=== PATIENT | female | born 1990 | race Hispanic/Latino ===

== ENCOUNTER 2020-12-12 21:55 | Emergency (ER) | payer SELFPAY ==
[2020-12-12 22:56] LABS: Bilirubin Neg (Negative); Blood, Urine Negative (Negative); Clarity Clear (Clear); Glucose, Urine (Dipstick) Normal (Negative); Ketone, Urine Negative (Negative); Leukocyte Negative (Negative); Nitrite Negative (Negative); Protein, Urine (Dipstick) Negative (Neg-Trace); Specific Gravity, Urine 1.005 (1.002-1.036); Urobilinogen Normal mg/dL (Less than 2)
[2020-12-12 22:57] LABS: Pregnancy Test - Urine (BHCG) Negative (Negative); Pregu Control Background? CLEAR/WHITE (CLR/WHITE); Pregu Control Bar Appear? YES (CONTROL BAR); Specific Gravity 1.005 (1.002-1.036)
[2020-12-12 23:10] LABS: Amphetamine Not Detected (NotDetected); Barbiturates Screen Not Detected (NotDetected); Benzodiazepine Screen Not Detected (NotDetected); Cocaine Metabolite Screen Detected (NotDetected); Methadone Not Detected (NotDetected); Methamphetamine Not Detected (NotDetected); Opiate Screen Not Detected (NotDetected); Oxycodone Screen Not Detected (NotDetected); Phencyclidine (PCP) Not Detected (NotDetected); THC/Cannabinoid Screen Not Detected (NotDetected); Tricyclic Screen Not Detected (NotDetected)
== END 2020-12-12 23:28 | disposition home or self-care (01) ==
LOC: CSHERS 21:55
DX: S60.222A Contusion of left hand, initial encounter (principal); S60.221A Contusion of right hand, initial encounter; F17.210 Nicotine dependence, cigarettes, uncomplicated; W22.01XA Walked into wall, initial encounter
CPT/HCPCS: 80306; 81003; 81025

== ENCOUNTER 2022-02-25 10:00 | Outpatient (CLI) | payer OTHER | END 2022-02-25 10:01 | disposition home or self-care (01) | LOC: CSHULT 10:00 | PROVIDERS: ATTEND Family Medicine | DX: Z34.82 Encounter for supervision of other normal pregnancy, second trimester (principal); Z3A.23 23 weeks gestation of pregnancy | CPT/HCPCS: 76805 ==

== ENCOUNTER 2022-06-13 17:09 | Day surgery (SDC) | payer OTHER ==
[2022-06-13 17:35] VITALS: BMI 29.2
[2022-06-13 21:52] LABS: Fetal Membranes Rupture No Membranes Rupture (No Rupture)
== END 2022-06-13 22:48 | disposition home or self-care (01) ==
LOC: CSHLD/OP 17:09
PROVIDERS: ATTEND Family Medicine
DX: O36.8130 Decreased fetal movements, third trimester, not applicable or unspecified (principal); Z3A.38 38 weeks gestation of pregnancy; O9A.213 Injury, poisoning and certain other consequences of external causes complicating pregnancy, third trimester; S39.91XA Unspecified injury of abdomen, initial encounter; Z79.82 Long term (current) use of aspirin; Z79.899 Other long term (current) drug therapy; W20.8XXA Other cause of strike by thrown, projected or falling object, initial encounter; Y93.89 Activity, other specified
CPT/HCPCS: 76815; 76819; 84112; 99283

== ENCOUNTER 2022-06-27 19:30 | Inpatient (IN) | payer OTHER ==
[2022-06-28 06:33] VITALS: BMI 29.8
[2022-06-28] MEDS ORDERED: Diphenoxylate HCl/Atropine Tablet PO PRN (07:57)
[2022-06-28] MEDS ORDERED: Misoprostol 200 MCG TAB PR PRN (07:57)
[2022-06-28] MEDS ORDERED: Lactated Ringer's 1,000 ML IV SCH (07:57)
[2022-06-28] MEDS ORDERED: Methylergonovine 0.2 MG/ML VIAL IM PRN (07:57)
[2022-06-28] MEDS ORDERED: NS w/ Oxytocin 30 units 500 ML IV SCH ×2 (07:57→18:39)
[2022-06-28] MEDS ORDERED: Promethazine HCl 25 MG/ML VIAL IM PRN ×3 (07:57→18:39)
[2022-06-28] MEDS ORDERED: hydrALAZINE 20 MG/ML VIAL SLOW IVP PRN ×2 (07:57→18:39)
[2022-06-28] MEDS ORDERED: Ibuprofen 800 MG TAB PO PRN (07:57)
[2022-06-28] MEDS ORDERED: HYDROcodone/Acetaminophen 5/325 mg Tablet PO PRN ×2 (07:57→18:39)
[2022-06-28] MEDS ORDERED: Butorphanol Tartrate 1 MG/ML VIAL SLOW IVP PRN (07:57)
[2022-06-28] MEDS ORDERED: Acetaminophen 500 MG TAB PO PRN (07:57)
[2022-06-28] MEDS ORDERED: Lidocaine 1% (PF) 30 ML VIAL SC PRN (07:57)
[2022-06-28] MEDS ORDERED: Carboprost 250 MCG/ML AMP IM PRN (07:57)
[2022-06-28] MEDS ORDERED: Ondansetron PF 4 MG/2 ML Vial IVP PRN ×3 (07:57→18:39)
[2022-06-28] MEDS ORDERED: Bupivacaine 0.25% HCL 30 ML VIAL ONE (08:00)
[2022-06-28 08:40] LABS: Hemoglobin 8.5 g/dL (12.0-15.5); Mean Corpuscular HGB CONC 27.8 g/dL (32.0-36.0); Mean Corpuscular Hemoglobin 17.9 pg (27.0-33.0); Mean Corpuscular Volume 64.4 fl (81.6-98.3); Mean Platelet Volume 9.4 fl (7.4-10.4); Platelet Count 390 10x3/uL (150-450); RBC Distribution Width 20.8 % (11.5-14.5); Red Blood Cell (RBC) Count 4.75 10x6/uL (3.90-5.03); White Blood Cell (WBC) Count 12.4 10x3/uL (3.5-10.5)
[2022-06-28 09:16] LABS: Syphilis Antibody Nonreactive (Nonreactive); Syphilis Antibody Index 0.11 S/CO (<1.00 Non-Reactive)
[2022-06-28 09:18] LABS: HBSAg Index 0.16 S/CO (0-0.99); Hep B Surf Ag Non-Reactive S/CO (NonReactive)
[2022-06-28] MEDS ORDERED: Butorphanol Tartrate 1 MG/ML VIAL ONE (10:59)
[2022-06-28] MEDS ORDERED: Fentanyl 2 mcg/Bup 0.1% Cadd 100 ML ONE (12:27)
[2022-06-28] MEDS ORDERED: Acetaminophen 325 MG TAB PO PRN (12:56)
[2022-06-28] MEDS ORDERED: Lactated Ringer's 500 ML IV PRN (12:56)
[2022-06-28] MEDS ORDERED: ePHEDrine Sulfate 50 MG/10 ML VIAL SLOW IVP PRN (12:56)
[2022-06-28] MEDS ORDERED: Moisturizing Cream (Eucerin) 113 GM JAR TOP PRN (12:56)
[2022-06-28] MEDS ORDERED: Naloxone HCl 0.4 mg/ml Vial IVP PRN ×2 (12:56)
[2022-06-28] MEDS ORDERED: diphenhydrAMINE 50 MG/ML VIAL IVP PRN (12:56)
[2022-06-28] MEDS ORDERED: Communication Order-Pharmacy FS SCH (13:00)
[2022-06-28] MEDS ORDERED: Fentanyl 2 mcg/Bupivacaine 0.1% Cassette 100 ML EPIDURAL SCH (13:00)
[2022-06-28] MEDS ORDERED: Terbutaline Sulfate 1 MG/ML VIAL ONE (13:11)
[2022-06-28] MEDS ORDERED: Ampicillin 2 GM VIAL ONE (16:46)
[2022-06-28] MEDS ORDERED: CEFAZOLIN 2 GM VIAL ONE (18:12)
[2022-06-28] MEDS ORDERED: Preparation H Ointment 28 GM TUBE PR PRN (18:39)
[2022-06-28] MEDS ORDERED: Milk Of Magnesia 30 ML UDCUP PO PRN (18:39)
[2022-06-28] MEDS ORDERED: diphenhydrAMINE 25 MG CAP PO PRN (18:39)
[2022-06-28] MEDS ORDERED: Benzocaine-Menthol 82.5 ML CAN TOP PRN (18:39)
[2022-06-28] MEDS ORDERED: Bisacodyl 10 MG SUPP PR PRN (18:39)
[2022-06-28] MEDS ORDERED: Lanolin Ointment 7 GM TUBE TOP PRN (18:39)
[2022-06-28] MEDS ORDERED: Boostrix 0.5 ML (Tdap) VIAL (>/=7 yrs of age) IM ONE (18:39)
[2022-06-28] MEDS ORDERED: Azithromycin 500 MG in Sodium Chloride 0.9% 250 ML 250 ML IVPB SCH (19:15)
[2022-06-28] MEDS: Docusate 100 MG CAP PO SCH (21:46)
[2022-06-28] MEDS ORDERED: Ibuprofen 800 MG TAB PO SCH (22:00)
[2022-06-29] MEDS: Ibuprofen 800 MG TAB PO SCH ×3 (02:04→18:44)
[2022-06-29] MEDS: HYDROcodone/Acetaminophen 5/325 mg Tablet PO PRN ×3 (02:04→17:00)
[2022-06-29] MEDS: CEFAZOLIN 2 GM in Sodium Chloride 0.9% 100 ML IVPB SCH ×4 (02:04→18:44)
[2022-06-29 04:52] LABS: Hemoglobin 6.6 g/dL (12.0-15.5); Mean Corpuscular HGB CONC 29.1 g/dL (32.0-36.0); Mean Corpuscular Hemoglobin 18.5 pg (27.0-33.0); Mean Corpuscular Volume 63.8 fl (81.6-98.3); Mean Platelet Volume 9.5 fl (7.4-10.4); Platelet Count 314 10x3/uL (150-450); RBC Distribution Width 20.3 % (11.5-14.5); Red Blood Cell (RBC) Count 3.56 10x6/uL (3.90-5.03); White Blood Cell (WBC) Count 22.3 10x3/uL (3.5-10.5)
[2022-06-29] MEDS: Misoprostol 100 MCG TAB VAG SCH ×2 (07:40→07:41)
[2022-06-29] MEDS: Docusate 100 MG CAP PO SCH ×2 (08:39→21:18)
[2022-06-29] MEDS: Prenatal Vitamin 1 TAB PO SCH (08:40)
[2022-06-29] MEDS: Ferrous Sulfate 325 MG TAB PO SCH ×2 (08:40→16:59)
[2022-06-30] MEDS: HYDROcodone/Acetaminophen 5/325 mg Tablet PO PRN ×3 (01:03→15:32)
[2022-06-30] MEDS: Ibuprofen 800 MG TAB PO SCH ×3 (01:34→16:56)
[2022-06-30] MEDS: Ferrous Sulfate 325 MG TAB PO SCH ×2 (08:39→16:56)
[2022-06-30] MEDS: Docusate 100 MG CAP PO SCH (08:39)
[2022-06-30] MEDS: Prenatal Vitamin 1 TAB PO SCH (08:39)
[2022-06-30 17:04] VITALS: BP 117/68; TEMP 98
== END 2022-06-30 18:37 | disposition home or self-care (01) | DRG 807 ==
LOC: CSHLD 06-28 05:49 → CSHPP 06-28 21:17
PROVIDERS: ADMIT Family Medicine; ATTEND Family Medicine
PROC: 10E0XZZ Delivery of Products of Conception, External Approach (ICD-10-PCS; principal; 2022-06-28)
PROC: 0KQM0ZZ Repair Perineum Muscle, Open Approach (ICD-10-PCS; 2022-06-28)
PROC: 10D17Z9 Manual Extraction of Products of Conception, Retained, Via Natural or Artificial Opening (ICD-10-PCS; 2022-06-28)
PROC: 10907ZC Drainage of Amniotic Fluid, Therapeutic from Products of Conception, Via Natural or Artificial Opening (ICD-10-PCS; 2022-06-28)
DX: O42.02 Full-term premature rupture of membranes, onset of labor within 24 hours of rupture (principal); Z37.0 Single live birth; Z3A.40 40 weeks gestation of pregnancy; O70.1 Second degree perineal laceration during delivery; O69.81X0 Labor and delivery complicated by cord around neck, without compression, not applicable or unspecified
CPT/HCPCS: 36415; 51702; 85027; 86780; 86850; 86900; 86901; 87340; J0456; J0595; J3490; J7050; S0020

== ENCOUNTER 2022-11-11 14:12 | Emergency (ER) | payer OTHER ==
[2022-11-11] MEDS ORDERED: Ondansetron PF 4 MG/2 ML Vial ONE (15:31)
[2022-11-11] MEDS ORDERED: Famotidine/PF 20 mg/2ml Vial ONE (15:32)
[2022-11-11 16:14] LABS: #Basophils 0.1 10x3/uL (0.0-0.2); #Eosinphils 0.2 10x3/uL (0.0-0.5); #Monocytes 0.3 10x3/uL (0.0-1.1); #Neutrophils 5.1 10x3/uL (1.5-8.4); %Basophils 1.6 % (0.0-2.0); %Lymphocytes 26.3 % (18.0-47.0); %Monocytes 3.7 % (0.0-10.0); %Neutrophils 66.3 % (40.0-75.0); Hemoglobin 10.9 g/dL (12.0-15.5); Mean Corpuscular HGB CONC 28.2 g/dL (32.0-36.0); Mean Corpuscular Volume 67.3 fl (81.6-98.3); Mean Platelet Volume 9.5 fl (7.4-10.4); Platelet Count 459 10x3/uL (150-450); RBC Distribution Width 21.7 % (11.5-14.5); Red Blood Cell (RBC) Count 5.75 10x6/uL (3.90-5.03); White Blood Cell (WBC) Count 7.6 10x3/uL (3.5-10.5)
[2022-11-11 16:24] LABS: Bilirubin Neg (Negative); Blood, Urine Negative (Negative); Clarity Clear (Clear); Glucose, Urine (Dipstick) Normal (Negative); Ketone, Urine Negative (Negative); Leukocyte 25 (Negative); Nitrite Negative (Negative); Protein, Urine (Dipstick) 30 mg/dl (Neg-Trace); Urobilinogen Normal mg/dL (Less than 2)
[2022-11-11 16:28] LABS: BHCG - Serum Negative (NEGATIVE); Pregs Control Background? CLEAR/WHITE (CLR/WHITE); Pregs Control Bar Appear? YES (CONTROL BAR)
[2022-11-11 16:34] LABS: ALT (SGPT) 17 U/L (8-55); AST (SGOT) 21 U/L (5-34); Albumin 4.8 g/dL (3.5-5.0); Alkaline Phosphatase 96 U/L (40-110); Anion Gap 15 mmol/L (10-20); BUN (Urea Nitrogen) 7 mg/dL (7.0-18.7); Bilirubin, Total 0.6 mg/dL (0.2-1.2); Calc. Creatinine Clearance 0 mL/min (70-130); Calcium 8.7 mg/dL (7.8-10.44); Carbon Dioxide 22 mmol/L (22-29); Chloride 108 mmol/L (98-107); Estimated GFR 100; Glucose 87 mg/dL (70-105); Lipase 14 U/L (8-78); Potassium 3.6 mmol/L (3.5-5.1); Protein, Total 8.8 g/dL (6.0-8.3); Sodium 141 mmol/L (136-145)
[2022-11-11 16:36] LABS: Bacteria/HPF Rare-Few HPF (None Seen); Mucous/LPF 1+ LPF (<2+); RBC/HPF 0-3 HPF (0-3); WBC/HPF 0-3 HPF (0-3)
== END 2022-11-11 16:55 | disposition home or self-care (01) ==
LOC: CSHERS 14:12
DX: R11.2 Nausea with vomiting, unspecified (principal); R19.7 Diarrhea, unspecified; F17.210 Nicotine dependence, cigarettes, uncomplicated
CPT/HCPCS: 80053; 81003; 81015; 83690; 84703; 85025; 96361; 96374; 96375; J2405; S0028

== ENCOUNTER 2022-12-20 08:39 | Outpatient (CLI) | payer OTHER | END 2022-12-20 08:40 | disposition home or self-care (01) | LOC: CSHMAMMO 08:39 | PROVIDERS: ATTEND Nurse Practitioner Women's Health | DX: N63.22 Unspecified lump in the left breast, upper inner quadrant (principal) | CPT/HCPCS: 77066; G0279 ==

== ENCOUNTER 2023-01-16 12:40 | Emergency (ER) | payer OTHER ==
[2023-01-16 13:21] LABS: #Basophils 0.1 10x3/uL (0.0-0.2); #Eosinphils 0.3 10x3/uL (0.0-0.5); #Monocytes 0.3 10x3/uL (0.0-1.1); #Neutrophils 2.6 10x3/uL (1.5-8.4); %Basophils 2.1 % (0.0-2.0); %Lymphocytes 40.2 % (18.0-47.0); %Neutrophils 45.5 % (40.0-75.0); Hemoglobin 10.4 g/dL (12.0-15.5); Mean Corpuscular HGB CONC 29.7 g/dL (32.0-36.0); Mean Corpuscular Hemoglobin 20.7 pg (27.0-33.0); Mean Corpuscular Volume 69.6 fl (81.6-98.3); Platelet Count 320 10x3/uL (150-450); RBC Distribution Width 17.7 % (11.5-14.5); Red Blood Cell (RBC) Count 5.03 10x6/uL (3.90-5.03); White Blood Cell (WBC) Count 5.7 10x3/uL (3.5-10.5)
[2023-01-16 13:36] LABS: ALT (SGPT) 7 U/L (8-55); AST (SGOT) 17 U/L (5-34); Alkaline Phosphatase 95 U/L (40-110); Anion Gap 15 mmol/L (10-20); BUN (Urea Nitrogen) 9 mg/dL (7.0-18.7); Bilirubin, Total 0.5 mg/dL (0.2-1.2); Calc. Creatinine Clearance 0 mL/min (70-130); Calcium 7.6 mg/dL (7.8-10.44); Carbon Dioxide 23 mmol/L (22-29); Chloride 106 mmol/L (98-107); Estimated GFR 105; Globulin 2.7 g/dL (2.4-3.5); Glucose 69 mg/dL (70-105); Protein, Total 6.7 g/dL (6.0-8.3); Sodium 140 mmol/L (136-145)
[2023-01-16 13:39] LABS: Microcytosis SLIGHT = 6-15 cells (100X) (0-5/hpf)
[2023-01-16 13:40] LABS: Hypochromia SLIGHT = 6-15 cells (100X) (0-5/hpf); Ovalocytes SLIGHT = 2-5 cells (100X) (0-1/hpf); Polychromasia SLIGHT = 2-3 cells (100X) (0-2/hpf)
[2023-01-16 13:41] LABS: Platelet Morphology Comment Appears Adequate
[2023-01-16] MEDS ORDERED: Lorazepam 1 MG TAB ONE (13:51)
== END 2023-01-16 14:23 | disposition home or self-care (01) ==
LOC: CSHERS 12:40
DX: F41.9 Anxiety disorder, unspecified (principal); D64.9 Anemia, unspecified; F17.210 Nicotine dependence, cigarettes, uncomplicated
CPT/HCPCS: 71045; 80053; 84484; 85025; 93005; 99283

== ENCOUNTER 2023-04-20 12:35 | Emergency (ER) | payer MEDICAID, OTHER, SELFPAY ==
[2023-04-20] MEDS ORDERED: Ondansetron PF 4 MG/2 ML Vial ONE ×2 (13:39→15:37)
[2023-04-20] MEDS ORDERED: Lactated Ringer's 1,000 ML ONE (13:39)
[2023-04-20 13:59] LABS: #Basophils 0.1 10x3/uL (0.0-0.2); #Monocytes 0.4 10x3/uL (0.0-1.1); #Neutrophils 10.4 10x3/uL (1.5-8.4); %Basophils 0.7 % (0.0-2.0); %Eosinophils 0.3 % (0.0-6.0); %Lymphocytes 15.8 % (18.0-47.0); %Monocytes 3.2 % (0.0-10.0); %Neutrophils 79.7 % (40.0-75.0); Hematocrit 39.3 % (34.9-44.5); Hemoglobin 12.2 g/dL (12.0-15.5); Mean Corpuscular Hemoglobin 22.6 pg (27.0-33.0); Mean Corpuscular Volume 72.8 fl (81.6-98.3); Mean Platelet Volume 9.6 fl (7.4-10.4); Platelet Count 458 10x3/uL (150-450); RBC Distribution Width 16.7 % (11.5-14.5)
[2023-04-20 14:12] LABS: ALT (SGPT) 19 U/L (8-55); AST (SGOT) 37 U/L (5-34); Albumin 4.6 g/dL (3.5-5.0); Alkaline Phosphatase 119 U/L (40-110); Anion Gap 16 mmol/L (10-20); BUN (Urea Nitrogen) 10 mg/dL (7.0-18.7); Bilirubin, Total 1.1 mg/dL (0.2-1.2); Calc. Creatinine Clearance 0 mL/min (70-130); Calcium 7.8 mg/dL (7.8-10.44); Carbon Dioxide 23 mmol/L (22-29); Chloride 101 mmol/L (98-107); Estimated GFR 100; Globulin 3.4 g/dL (2.4-3.5); Glucose 88 mg/dL (70-105); Lipase 8 U/L (8-78); Potassium 3.3 mmol/L (3.5-5.1); Sodium 137 mmol/L (136-145)
[2023-04-20 14:52] LABS: Bilirubin Neg (Negative); Blood, Urine 10 (Negative); Clarity Slightly Cloudy (Clear); Glucose, Urine (Dipstick) Normal (Negative); Ketone, Urine 5 mg/dL (Negative); Leukocyte 100 (Negative); Nitrite Negative (Negative); Protein, Urine (Dipstick) 30 mg/dl (Neg-Trace); Urobilinogen Normal mg/dL (Less than 2)
[2023-04-20 14:54] LABS: Pregnancy Test - Urine (BHCG) Negative (Negative); Pregu Control Background? CLEAR/WHITE (CLR/WHITE); Pregu Control Bar Appear? YES (CONTROL BAR)
[2023-04-20 14:59] LABS: Amphetamine Not Detected (NotDetected); Barbiturates Screen Not Detected (NotDetected); Benzodiazepine Screen Not Detected (NotDetected); Cocaine Metabolite Screen Not Detected (NotDetected); Methadone Not Detected (NotDetected); Methamphetamine Not Detected (NotDetected); Opiate Screen Not Detected (NotDetected); Oxycodone Screen Not Detected (NotDetected); Phencyclidine (PCP) Not Detected (NotDetected); THC/Cannabinoid Screen Not Detected (NotDetected); Tricyclic Screen Not Detected (NotDetected)
[2023-04-20 15:04] LABS: CAUTI Indications for Culture Dysuria,urgency,freq; RBC/HPF 0-3 HPF (0-3)
[2023-04-20 15:09] LABS: Bacteria/HPF 2+ HPF (None Seen); Mucous/LPF 3+ LPF (<2+); Urine Culture Reflex Yes Yes
[2023-04-20] MEDS ORDERED: cefTRIAXone (ROCEPHIN) 1 GM VIAL ONE (15:37)
== END 2023-04-20 17:27 | disposition home or self-care (01) ==
LOC: CSHERS 12:35
DX: N10 Acute pyelonephritis (principal); J45.909 Unspecified asthma, uncomplicated; F17.210 Nicotine dependence, cigarettes, uncomplicated
CPT/HCPCS: 80053; 80306; 81001; 81025; 83690; 85025; 87086; 96361; 96374; 96375; 96376; J0696; J2405; J7120

== ENCOUNTER 2023-06-23 08:08 | Outpatient (CLI) | payer MEDICAID | END 2023-06-23 08:09 | disposition home or self-care (01) | LOC: CSHULT 08:08 | PROVIDERS: ATTEND Nurse Practitioner Women's Health | DX: N60.02 Solitary cyst of left breast (principal) ==

== ENCOUNTER 2023-08-19 20:13 | Emergency (ER) | payer MEDICAID, SELFPAY | END 2023-08-19 23:02 | disposition home or self-care (01) | LOC: CSHERS 20:13 | DX: N76.4 Abscess of vulva (principal); F17.210 Nicotine dependence, cigarettes, uncomplicated | CPT/HCPCS: 10060; 87070; 87205 ==